=== PATIENT | female | born 1960 | race Native Hawaiian/Other Pacific Islander ===

== ENCOUNTER 2022-10-14 12:21 | Outpatient (CLI) | payer OTHER | END 2022-10-14 19:00 | disposition home or self-care (01) | LOC: US 12:21 | PROVIDERS: ATTEND Nurse Practitioner | DX: E04.8 Other specified nontoxic goiter (principal) ==

== ENCOUNTER 2022-12-24 08:46 | Outpatient (CLI) | payer OTHER ==
[~2022-12-24] VITALS: Ht 162.6 cm; Wt 79.4 kg
== END 2022-12-24 19:03 | disposition home or self-care (01) ==
LOC: NM 08:46
PROVIDERS: ATTEND Nurse Practitioner
DX: Z86.73 Personal history of transient ischemic attack (TIA), and cerebral infarction without residual deficits (principal); R07.89 Other chest pain; I63.9 Cerebral infarction, unspecified
CPT/HCPCS: A9500; J2785